=== PATIENT | female | born 1975 | race Caucasian/White ===

== ENCOUNTER 2023-06-03 07:17 | Emergency (ER) | payer SELFPAY ==
[2023-06-03] MEDS ORDERED: Aspirin Chewable 81 MG TAB ONE (08:12)
[2023-06-03] MEDS ORDERED: Sodium Chloride 0.9% 1,000 ML ONE (08:12)
[2023-06-03 08:23] LABS: Hematocrit 38.5 % (36.0-47.0); Hemoglobin 12.6 g/dL (12.0-16.0); Mean Corpuscular HGB CONC 32.8 g/dL (32.0-36.0); Mean Corpuscular Hemoglobin 32.9 pg (27.0-31.0); Platelet Count 156 10x3/uL (130-400); RBC Distribution Width 11.5 % (11.5-14.5); Red Blood Cell (RBC) Count 3.83 mill/uL (4.20-5.40)
[2023-06-03 08:26] LABS: BHCG - Serum Negative (NEGATIVE); Pregs Control Background? CLEAR/WHITE (CLR/WHITE); Pregs Control Bar Appear? YES (CONTROL BAR)
[2023-06-03 08:28] LABS: #Lymphocytes 1.9 thou/uL (1.20-3.40); #Monocytes 0.4 thou/uL (0.11-0.59); #Neutrophils 3.4 thou/uL (1.40-6.50); %Basophils 1.1 % (0.0-1.0); %Eosinophils 4.6 % (0.0-10.0); %Lymphocytes 32.2 % (21.0-51.0); %Monocytes 6.4 % (0.0-10.0); %Neutrophils 55.8 % (42.0-75.0)
[2023-06-03 08:29] LABS: #Basophils 0.1 thou/uL (0.0-0.2); #Eosinphils 0.3 thou/uL (0.0-0.7)
[2023-06-03 08:42] LABS: Carbon Dioxide 24 mmol/L (22-29); Chloride 108 mmol/L (98-107); Potassium 4.3 mmol/L (3.5-5.1); Sodium 140 mmol/L (136-145)
[2023-06-03 08:43] LABS: ALT (SGPT) 10 U/L (8-55); AST (SGOT) 13 U/L (5-34); Alkaline Phosphatase 59 U/L (40-110); BUN (Urea Nitrogen) 9 mg/dL (7.0-18.7); Bilirubin, Total 0.4 mg/dL (0.2-1.2); Calc. Creatinine Clearance 0 mL/min (70-130); Calcium 9.3 mg/dL (7.6-10.4); Estimated GFR 97; Globulin 2.3 g/dL (2.4-3.5); Glucose 97 mg/dL (70-105); Magnesium 1.9 mg/dL (1.6-2.6); Protein, Total 6.3 g/dL (6.0-8.3)
[2023-06-03 08:44] LABS: Anion Gap 12 mmol/L (10-20)
[2023-06-03 08:59] LABS: Troponin I Less than 0.010 ng/mL (< 0.028)
[2023-06-03] MEDS ORDERED: Sucralfate 1 GM TAB ONE (10:01)
[2023-06-03] MEDS ORDERED: Famotidine/PF 20 mg/2ml Vial ONE (10:01)
[2023-06-03 11:54] LABS: Troponin I Less than 0.010 ng/mL (< 0.028)
[2023-06-03] MEDS ORDERED: Ondansetron PF 4 MG/2 ML Vial ONE (12:10)
== END 2023-06-03 12:22 | disposition home or self-care (01) ==
LOC: MADERS 07:17
DX: R07.9 Chest pain, unspecified (principal)
CPT/HCPCS: 71045; 80053; 83690; 83735; 83880; 84484; 84703; 85025; 85379; 93005; 94760; 96361; 96374; 96375; J2405; J7050; S0028